=== PATIENT | female | born 1925 | race Caucasian/White ===

== ENCOUNTER 2017-10-02 11:18 | Inpatient (IN) | payer MEDICARE, OTHER ==
[2017-10-02] MEDS ORDERED: traMADol HCl 50 MG TAB ONE (13:23)
[2017-10-02 13:29] LABS: #Basophils 0.1 thou/uL (0.0-0.2); #Eosinphils 0.2 thou/uL (0.0-0.7); #Lymphocytes 1.7 thou/uL (1.20-3.40); #Monocytes 0.9 thou/uL (0.11-0.59); #Neutrophils 5.8 thou/uL (1.40-6.50); %Eosinophils 2.6 % (0.0-10.0); %Lymphocytes 19.8 % (21.0-51.0); %Monocytes 9.9 % (0.0-10.0); Hematocrit 34.6 % (36.0-47.0); Mean Platelet Volume 8.2 fL (7.4-10.4); Red Blood Cell (RBC) Count 3.81 mill/uL (4.20-5.40); White Blood Cell (WBC) Count 8.7 thou/uL (4.8-10.8)
[2017-10-02 13:40] LABS: ALT (SGPT) 13 U/L (8-55); AST (SGOT) 15 U/L (5-34); Alkaline Phosphatase 97 U/L (40-150); Anion Gap 14 mmol/L (10-20); BUN (Urea Nitrogen) 20 mg/dL (9.8-20.1); Bilirubin, Total 0.4 mg/dL (0.2-1.2); Calc. Creatinine Clearance 0 mL/min (70-130); Calcium 10.3 mg/dL (7.8-10.44); Carbon Dioxide 23 mmol/L (23-31); Chloride 106 mmol/L (98-107); Estimated GFR-MDRD 59; Globulin 3.2 g/dL (2.4-3.5); Protein, Total 6.7 g/dL (6.0-8.3)
--- NOTE | 2017-10-02 13:47 | RAD ---
LEFT HIP 2 VIEWS: HISTORY: Hip pain. FINDINGS: A total hip prosthesis appears to be in satisfactory position without signs of loosening or fracture. IMPRESSION: 1. Total hip prosthesis in satisfactory position. 2. Old-appearing fracture of the left side of the symphysis. POS: [facility]
--- NOTE | 2017-10-02 15:05 | CT ---
CT LUMBAR SPINE NONCONTRAST: Date: 10-02-17 History: 89-year-old female with back pain and multiple compression fractures. Comparison: Plain radiograph of 04-16-17. FINDINGS: There is fluid distending the esophagus, incompletely imaged. Within the right pelvic cavity there is an approximately 3.5 x 4.5 x 4 cm complex right solid and cystic mass. There are soft tissue compone nts, but the majority of the volume of this mass consists of a large number of cysts. Many are small. The largest cystic component is approximately 2.5 cm. Large number of diverticula thr oughout the sigmoid colon. Diffuse mild fat stranding throughout the pelvic cavity, especially on the left side. The right kidney is not visualized, and is perhaps absent. There is severe diffuse osteop enia. There are five lumbar type vertebrae. No significant scoliosis. No major spondylolisthesis. T11: Old burst fracture with mild bony retropulsion. Approximately 75% maximum loss of height central ly. T12: Burst fracture with bony retropulsion decreasing the anterior posterior dimension of the spinal canal by approximately 20%. There is a fracture lucency component at the junction of the between the right pedicle and right body which is questionably subacute or acute (axial Image 22 of 158, Series 4 ). Diffuse sclerosis of the collapsed T12 vertebral body. Maximum degree of loss of height is approxi mately 80%. L1: Old collapse. Central component of the collapsed vertebra has approximately 95-99% loss of height . The loss of height of the periphery of the vertebral body is less severe. Mild bony retropulsion de creasing the anterior portion of the spinal canal by approximately 20-30%. This was definitely presen t on the radiograph of 04-11-17, and has not significantly changed. L2: Mild, broad, chronic indentations of the superior and inferior endplates. Minimal loss of height of the anterior aspect of the vertebral body. L3: Broad indention of superior and inferior endplates, with maximum loss of height centrally of appr oximately 30-40%. L4: Overall maximum central loss of height of approximately 75-90%. Loss of height of the anterior an d posterior aspects of the vertebral bodies are less severe. Minimal bony retropulsion. L5: Vertebral body height is preserved. There is severe bilateral neural foraminal stenosis at T11-12, T12-L1, and L1-2. No severe central s arina canal stenosis at any level. IMPRESSION: 1. Severe, diffuse osteoporosis. 2. Multiple osteoporotic compression fractures and burst fractures of every visualized level, with th e relative exception of L5. 3. The vast majority of these are old. It is difficult to rule out the possibility that there could b e mild acute or subacute components of the compression fractures. 4. A complex solid and cystic right adnexal mass. In a post-menopausal female, this raises the possib ility of a cystic ovarian neoplasm. 5. Fat stranding within the left side of the pelvic cavity, in the setting of sigmoid colonic diverti culosis. It is uncertain whether or not this represents acute diverticulitis or not. This is incomple tely imaged. 6. Distended esophagus. 7. High grade bilateral neuroforaminal stenoses at T11-12, T12-L1, and L1-2. 8. No high-grade central spinal canal stenosis at any level. POS: [facility]W
[2017-10-02 16:38] LABS: Bilirubin Negative (Negative); Blood, Urine Negative (Negative); Glucose, Urine (Dipstick) Negative (Negative); Ketone, Urine Negative (Negative); Nitrite Negative (Negative); Protein, Urine (Dipstick) Negative (Neg-Trace); Urobilinogen 0.2 mg/dL (0.2-1.0)
[2017-10-02 16:44] LABS: RBC/HPF 0-3 HPF (0-3)
[2017-10-02 16:45] LABS: Bacteria/HPF 1+ HPF (None Seen); Renal Epithelial 0-3 HPF (0-3); Squamous Epithelial 0-3 HPF (0-3)
--- NOTE | 2017-10-02 16:54 | CT ---
CT OF ABDOMEN AND PELVIS PERFORMED WITH INTRAVENOUS CONTRAST ENHANCEMENT: History: Left sided abdominal pain. FINDINGS: The lung bases show chronic appearing change with subsegmental atelectatic change. There is a fluid c ollection which appears to be related to hiatal hernia. It is somewhat unusual in appearance for a he rnia, the upper portion is not seen on this exam and it may just represent some type of duplication c yst. The liver and spleen show no focal abnormalities. The pancreas region appears fairly unremarkable. There appears to be some slight pancreatic ductal di latation. There is a slightly ectopic appearance to the gallbladder which lies on the anterior aspect of the right inferior portion of the right lobe of the liver. The right and left kidneys show abnormal position of the right kidney which is more low lying and abn ormally rotated. There are some cysts involving both the right and left kidneys. One of these smaller cysts in the right kidney has a peripherally calcified margin and measures 11-12 mm in size. There i s a larger, 2 x 2.7 cm solid appearing mass involving the upper pole of the left kidney. There is a duplicated IVC present. There is a moderate amount of stool present in the colon. CT OF PELVIS PERFORMED WITH CONTRAST ENHANCEMENT: Total hip prosthesis is noted on the left. Sigmoid diverticulosis is seen without a definite inflamma tory process. There is a septated cystic appearing mass which would be in the expected location of th e right adnexa. It measures 4.2 cm in diameter. IMPRESSION: 1. Renal abnormalities as discussed above. The most significant of these is a 2 x 2.7 cm solid appear ing upper pole left renal mass suspicious for neoplasm. 2. Somewhat loculated or septated cystic appearing mass in the right side of the pelvis, presumably o f adnexal origin which measures 4.2 cm. 3. Sigmoid diverticulosis. 4. Other findings as noted above. 5. Findings telephoned to Dr. iRce. 6. Multilevel vertebral body compression changes, please refer to the CT report concerning these spec [facility] findings. POS: [facility]
[2017-10-02] MEDS ORDERED: HYDROcodone/Acetaminophen 5/325 mg Tablet ONE (18:00)
[2017-10-03] MEDS ORDERED: Ondansetron HCl/PF 4 MG/2 ML Vial IVP PRN (02:33)
[2017-10-03] MEDS ORDERED: Acetaminophen 325 MG TAB PO PRN (02:33)
[2017-10-03] MEDS ORDERED: Ondansetron ODT 4 MG TAB SL PRN (02:33)
[2017-10-03] MEDS ORDERED: Acetaminophen 650 MG Suppository PR PRN (02:46)
[2017-10-03 02:48] VITALS: BMI 16.1
[2017-10-03] MEDS ORDERED: hydrALAZINE 20 MG/ML VIAL SLOW IVP PRN ×3 (03:04→13:26)
--- NOTE | 2017-10-03 03:45 | HP ---
PRIMARY CARE PHYSICIAN: Tiffanie Martinez MD CHIEF COMPLAINT: Back pain. HISTORY OF PRESENT ILLNESS: Mr. Brock is a pleasant 89-year-old lady, who was seen at [facility] on 10/03/2017 following transfer from [facility] Emergency Room. She reports that in early February, she sustained left hip fracture. Since then, she has been having left hip and lower back pain. She was hospitalized for urinary tract infection in 03/2017 at [facility]. In terms of the hip fracture, she underwent left hip hemiarthroplasty. She reports ongoing lower back pain, worse with movement, 10/10, not accompanied by chest discomfort. She denies any weight loss. She denies any nausea or vomiting. REVIEW OF SYSTEMS: The following complete review of systems was negative, unless otherwise mentioned in the HPI or below: Constitutional: Weight loss or gain, sense of well-being, ability to conduct usual activities, exercise tolerance. Skin/Breast: Rash, itching, changes in hair growth or loss, n ail changes, breast lumps, tenderness, swelling, nipple discharge. Eyes: Vision, double vision, tea ring, blind spots, pain. ENT/Mouth: Headaches (location, time of onset, duration, precipitating fac tors), vertigo, lightheadedness, injury. Vision, double vision, tearing, blind spots, pain, nose ble eding, colds, obstruction, discharge, dental difficulties, gingival bleeding, dentures, neck stiffnes s, pain, tenderness, masses in thyroid or other areas. Cardiovascular: Precordial pain, substernal distress, palpitations, syncope, dyspnea on exertion, orthopnea, nocturnal paroxysmal dyspnea, edema, cyanosis, hypertension, heart murmurs, varicosities, phlebitis, claudication. Respiratory: Pain, s hortness of breath, wheezing, stridor, cough, hemoptysis, fever or night sweats. Gastrointestinal: Poor appetite, dysphagia, indigestion, abdominal pain, heartburn, eructation, nausea, vomiting, hemat emesis, jaundice, constipation, or diarrhea, abnormal stools (eleazar-colored, tarry, bloody, greasy, fo ul smelling), flatulence, hemorrhoids, recent changes in bowel habits. Genitourinary: Urgency, freq uency, dysuria, nocturia, hematuria, polyuria, oliguria, unusual (or change in) color of urine, stone s, hesitancy, change in size of stream, dribbling, acute retention or incontinence, libido, potency. Musculoskeletal: Pain, swelling, redness or heat of muscles or joints, limitation, of motion, muscu lar weakness, atrophy, cramps. Neurologic/Psychiatric: Convulsions, paralyses, tremor, incoordinati on, parasthesias, difficulties with memory of speech, sensory or motor disturbances, or muscular coor dination (ataxia, tremor), emotional problems, anxiety, depression, previous psychiatric care, unusua l perceptions, hallucinations. Allergy/Immunologic: Skin rash, anemia, bleeding tendency, polydipsi a, polyuria, intolerance to heat or cold. PAST MEDICAL HISTORY: Significant for hypertension and compression fracture of vertebrae. PAST SURGICAL HISTORY: Significant for left hip hemiarthroplasty. SOCIAL HISTORY: The patient denies any tobacco, alcohol, or recreational drug use. FAMILY HISTORY: No family history of premature coronary artery disease. ALLERGIES: No known drug allergies. CURRENT MEDICATIONS: Include amlodipine 10 mg daily. PHYSICAL EXAMINATION: GENERAL: Mr. Brock is awake and alert, not in acute distress. VITAL SIGNS: Blood pressure is 158/82, pulse is 76. She is breathing at rate of 16, and saturating 99% on room air. She is afebrile. EYES: No scleral icterus. No conjunctival pallor. ENT: Moist mucosal membranes, no oropharyngeal erythema, or exudates. NECK: Supple, nontender, normal range of movement. Trachea is midline. RESPIRATORY: Accessory muscles of breathing are not active. Chest wall movements are symmetric bila terally. LUNGS: Clear to auscultation, without wheeze, rhonchi, or crepitations. CARDIOVASCULAR: S1 and S2 are heard, regular. Peripheral pulses are palpable. No carotid bruit, no pericardial rub. ABDOMEN: Soft, nontender, bowel sounds heard, no hepatomegaly, no splenomegaly. LYMPHATIC: No cervical lymphadenopathy. NEUROLOGIC: Cranial nerves II through XII are intact. Deep tendon reflexes are 2+. SKIN: No rashes or subcutaneous nodules. MUSCULOSKELETAL: She has tenderness over the lumbar spine. Power is 5/5 in all 4 extremities. PSYCHIATRIC: Normal mood, normal affect, patient is oriented to person, place, and time. LABORATORY DATA: Ms. Brock labs and investigations were reviewed. She had lumbar spine CT, which showed severe diffuse osteoporosis, multiple osteoporotic compression fractures, and burst fractures of every visualized level with the relative exception of L5. She also had a complex solid and cystic right adnexal mass, raising the possibility of a cystic ovarian neoplasm. She also had fat-strandin g within the left side of the pelvic cavity in the setting of sigmoid colonic diverticulosis. She blanc d a distended esophagus, high-grade bilateral neural foraminal stenosis at T11-T12, T12-L1, and L1-L2 . She also had a CT scan of the abdomen and pelvis, which showed renal abnormalities, including 2 x 2.7 cm solid appearing upper left renal mass suspicious for neoplasm and loculated or septated cystic -appearing mass in the right side of the pelvis, presumably of adnexal region which measured 4.2 cm. She had x-ray of the left hip, which showed an old appearing fracture of the left side of the symphy sis. Total hip prosthesis was in satisfactory position. Laboratory investigation show a normal whit e count, normocytic anemia with hemoglobin 11.2, normal platelet count, unremarkable comprehensive me tabolic profile, and urinalysis positive for a small amount of leukocyte esterase. ASSESSMENT AND PLAN: Ms. Brock is a pleasant 89-year-old lady, who was seen at [facility] on 09/03/2017 following transfer from [facility] Emergency Room. Her probl em list includes: 1. Back pain: Likely due to multiple vertebral compression fractures. Neurosurgery service has bee n contacted by the emergency room physician at [facility] Emergency Room. They have recom mended admission to the hospital for further management, including fitting of a brace. We will follo w their instructions. Pain management for now. 2. Renal mass: Suspicious for neoplasm. I will consult Urology Service for their opinion. 3. Ovarian mass: In suspicious for neoplasm. Consult [facility] for opinion and help with furt her management. 4. Hypertension: Monitor vital signs, titrate antihypertensives as needed. LEVEL OF RISK: Moderate. LEVEL OF COMPLEXITY: Moderate. Many thanks for allowing me to participate in your patient's care. Please feel free to contact me wi th any questions or concerns. Code status was discussed, she is FULL CODE.
[2017-10-03 05:00] LABS: #Basophils 0.1 thou/uL (0.0-0.2); #Eosinphils 0.3 thou/uL (0.0-0.7); #Lymphocytes 1.4 thou/uL (1.20-3.40); #Monocytes 0.9 thou/uL (0.11-0.59); #Neutrophils 6.7 thou/uL (1.40-6.50); %Basophils 0.6 % (0.0-1.0); %Eosinophils 3.3 % (0.0-10.0); %Lymphocytes 14.7 % (21.0-51.0); Hematocrit 35.9 % (36.0-47.0); Mean Platelet Volume 8.6 fL (7.4-10.4); Red Blood Cell (RBC) Count 3.81 mill/uL (4.20-5.40); White Blood Cell (WBC) Count 9.4 thou/uL (4.8-10.8)
[2017-10-03 05:11] LABS: Anion Gap 11 mmol/L (10-20); BUN (Urea Nitrogen) 16 mg/dL (9.8-20.1); Calc. Creatinine Clearance 34 mL/min (70-130); Calcium 10.1 mg/dL (7.8-10.44); Carbon Dioxide 26 mmol/L (23-31); Chloride 103 mmol/L (98-107); Estimated GFR-MDRD 66
[2017-10-03] MEDS: Morphine 10 MG/ML CARPUJECT SLOW IVP PRN ×3 (06:29→18:23)
[2017-10-03] MEDS: Enoxaparin Sodium 40 MG/0.4 ML SYRINGE SC SCH (09:18)
--- NOTE | 2017-10-03 10:14 | CON ---
DATE OF CONSULTATION: 10/03/2017 HISTORY OF PRESENT ILLNESS: The patient is an 89-year-old female with a history of osteoporosis and multiple compression fractures in the past, who presented to [facility] for progressively worsening back pain over the last 2 weeks. She denies any other recent trauma or falls. She has been taking tramadol for pain. She denies any weakness, numbness, tingling, or bowel or bladder dysfunction. She was evaluated with a CT of the lumbar spine, which was notable for compression deformities from T11 to L4, which are age indeterminate in nature. She was admitted to the medicine service for pain management and as well as of a pelvic and renal mass, which is suspicious for neoplasm. The Neurosurgery Service was consulted for further evaluation of her compression deformities. PAST MEDICAL HISTORY: Osteoporosis, multiple compression fractures, hypertension. PAST SURGICAL HISTORY: Left hip surgery. SOCIAL HISTORY: The patient does not smoke, drink or use any drugs. FAMILY HISTORY: Noncontributory. ALLERGIES: Patient has no known drug allergies. REVIEW OF SYSTEMS: Per HPI. PHYSICAL EXAMINATION: CONSTITUTIONAL: No acute distress. HEAD: Normocephalic, atraumatic. EYES: PERRLA. Extraocular movements are intact. Sclerae white. ENT: Oral mucosa is pink, intact and moist. She has normal voice. NECK: Nontender to palpation. Free active range of motion. RESPIRATORY: The patient is breathing comfortably and no evidence of dyspnea. CARDIOVASCULAR: Regular rate and rhythm. BACK: She is tender to palpation diffusely over the lumbar spine and bilateral paraspinal musculature. MUSCULOSKELETAL: Patient is a thin, frail, poor muscle tone throughout; however , she has active range of motion of all extremities. No focal weakness, no reflex asymmetry. NEUROLOGIC: A&O x4. No focal weakness is appreciated. ASSESSMENT: Multiple compression fractures secondary to underlying osteoporosis at T11-L4 appears subacute in age. PLAN: I have ordered a TLSO brace, which the patient should wear for out of bed activities. She can remove the brace when she is in the bed or the shower. I do not anticipate any acute neurosurgical intervention. She can follow up with us on a p.r.n. basis. She may also benefit from followup with pain management for management of her chronic back pain and compression fractures. Please reach out to the neurosurgical service for additional questions or concerns. DEL
--- NOTE | 2017-10-03 12:30 | ULT ---
TRANSABDOMINAL AND TRANSVAGINAL PELVIC ULTRASOUND: INDICATION: Right adnexal mass. COMPARISON: CT dated 10/02/17. TECHNIQUE: Transabdominal and transvaginal pelvic ultrasound utilizing gordon scale, color and vascular duplex was performed of the pelvis. There is limitation of the exam detail due to loops of bowel within the lo wer pelvis. Uterus measures 4.8 x 2.2 x 2.9 cm. Endometrial stripe was not well seen due to the atr ophy of the uterus. The right adnexa is not well seen; however, the complex cystic mass seen on the CT examination is demonstrated measuring 4 x 4.1 x 3.2 cm and is suspicious for a complex cystic mass of the right ovary such as a cystoadenoma or cystadenocarcinoma. The left ovary is not seen. No fr ee fluid is evident. IMPRESSION: Complex cystic mass in the expected region of the right ovary. Normal ovary is not demonstrated. Fi ndings are suspicious for a complex cystic malignancy of the right ovary. BUT[facility]OLER consultation is rec ommended. CODE T POS: MATHEW
[2017-10-03] MEDS ORDERED: Amlodipine 5 MG TAB PO SCH (13:30)
--- NOTE | 2017-10-03 16:17 | RAD ---
PA AND LATERAL VIEWS OF CHEST: Date: 10/03/17 HISTORY: Rule out lesions. FINDINGS: The heart size is enlarged. The aorta is tortuous. The lungs are well expanded without confluent area s of consolidation, pneumothorax, or joel pulmonary edema. Small bilateral pleural effusions are see n. There are multiple compressed vertebral body fractures. IMPRESSION: 1. Cardiomegaly. 2. Small bilateral pleural effusions. 3. Compression fractures in the thoracic spine. POS: [facility]
--- NOTE | 2017-10-03 16:31 | CON ---
DATE OF CONSULTATION: 10/03/2017 REASON FOR CONSULTATION: Consultation was requested for left renal mass. HISTORY OF PRESENT ILLNESS: The patient was admitted with exacerbation of her chronic back pain and in the workup for this imaging found an incidental renal mass and I was consulted. Normally, she has frequency q. 2-3 hours nocturia x2- 3. She has no lower urinary tract symptoms nor leakage. She does not wear pads or liners. PAST MEDICAL HISTORY: Significant for osteoporosis with multiple compression fractures and hypertension. PAST OBSTETRIC HISTORY: She had four vaginal deliveries and has had no bleeding or vaginal concerns since menopause. 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 SOCIAL HISTORY: She does not smoke, drink or use drugs. She lives at home by herself and even moves her yard by her report. MEDICATIONS: Amlodipine 10 mg, occasional Metamucil and something that she takes every other day to help her bowels and vitamin D. ALLERGIES: None. REVIEW OF SYSTEMS: Reveals she had Pap smears and mammograms remotely and they were both normal. She had a colonoscopy around 2011 which was normal. There is no family history of colon cancer or prior polyps. She denies any chest pain or shortness of breath. She does have some left lower extremity tingling and that has been ever since the repair of her hip in February. She exercises routinely with respect to taking care of her house and property. FAMILY HISTORY: Significant for dad dying after he fell and broke his hip at age 92, mom passed at 88. There was no cancer in them. Her sister did have breast cancer, but it was cured. She has and all her siblings in their 80s or 90s. PHYSICAL EXAMINATION: GENERAL: She is lying comfortably in the bed. She is alert and oriented. VITAL SIGNS: She is afebrile at 97.9, blood pressure 167/97, heart rate 74, respiratory rate 18, satting 98% on room air. Her urine output is listed as 225 for the last measure. NECK: No JVD. HEENT: No scleral icterus. She has no concerning skin component. CARDIOVASCULAR: Regular rate and rhythm without murmurs, gallops or rubs. RESPIRATORY: Lungs are clear to auscultation bilaterally. 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 EXTREMITIES: She had no lower extremity edema. LABORATORY DATA: Reveal mild anemia 11.4 and 35.9. BUN and creatinine of 16 and 0.82. Her liver function tests are within normal limits. Urinalysis from the 10/02/2017 revealed 7-10 wbcs, 0-3 rbcs, 1+ bacteria and 0-3 squamous cells. Her urinalysis from March revealed 7-10 wbcs, no rbcs, no bacteria and 0- 3 squamous with the culture being negative. There is no recent chest x-ray. CT with contrast from 10/02/2017 reviewed personally and revealed a right ectopic kidney which is more inferior and anterior than normal with simple cyst as well as possible stones associated with one of the cysts as there are 3 areas of 3 mm each that may represent contrast, but could be calcifications associated with this non-concerning cyst. On the left, she also has a simple cyst in addition to a 2.5 x 1.8 x 1.5 cm enhancing mass. There are no precontrast images to compare, but the Hounsfield units with contrast were about 50. There is no other lymphadenopathy or liver concerns, but there was concern for an ovarian mass on the right. ASSESSMENT AND PLAN: We have an 89-year-old female with a left renal mass concerning for possible neoplasm. Based on the concerning right ovarian mass and her age, I would simply monitor at this time. We did discuss how this could represent cancer, but I would just reassess its aggressiveness by scanning in 3-6 months' time to assess for growth. We reviewed this in detail and all questions were answered. I would repeat a CAT scan in approximately 6 months' time to reevaluate unless she has some other symptoms that warrant repeating imaging sooner. DEL
[2017-10-03] MEDS: Morphine 2 mg/2ml in 0.9% NaCl PF SYRINGE IV PRN (22:36)
[2017-10-04 06:12] LABS: #Eosinphils 0.3 thou/uL (0.0-0.7); #Lymphocytes 1.7 thou/uL (1.20-3.40); #Monocytes 1.3 thou/uL (0.11-0.59); #Neutrophils 6.7 thou/uL (1.40-6.50); %Basophils 0.4 % (0.0-1.0); %Eosinophils 3.1 % (0.0-10.0); %Lymphocytes 16.7 % (21.0-51.0); Mean Platelet Volume 8.5 fL (7.4-10.4); Red Blood Cell (RBC) Count 3.65 mill/uL (4.20-5.40); White Blood Cell (WBC) Count 10.1 thou/uL (4.8-10.8)
[2017-10-04 06:22] LABS: Anion Gap 9 mmol/L (10-20); BUN (Urea Nitrogen) 14 mg/dL (9.8-20.1); Calc. Creatinine Clearance 35 mL/min (70-130); Calcium 9.8 mg/dL (7.8-10.44); Carbon Dioxide 29 mmol/L (23-31); Chloride 102 mmol/L (98-107); Estimated GFR-MDRD 67
--- NOTE | 2017-10-04 08:09 | CON ---
DATE OF CONSULTATION: 10/03/2017 REFERRING PHYSICIAN: Dr. Aren Duran. CHIEF COMPLAINT: Adnexal mass. HISTORY OF PRESENT ILLNESS: The patient is an 89-year-old female who presented to the hospital with severe back pain and was admitted for treatment and evaluation. During her evaluation, the patient h ad a CT scan and was noted to have a 4 cm multicystic complex adnexal mass and DENTAL OFFICE COORDINATOR was consulted f or evaluation. When I initially went to go see the patient, patient was restfully lying in bed. She reported that she was aware of this adnexal mass after it was discovered during this hospitalization , but had not had any problems previous to this visit. The patient denies any abdominal pain. She d enies any vaginal bleeding or a concerning discharge. She denies any nausea or vomiting or any weigh t loss. Patient does have back pain. She also had a hip fracture in 02/2017. PAST MEDICAL HISTORY: Hypertension and compression fracture of the vertebra. PAST SURGICAL HISTORY: Left hip hemiarthroplasty. SOCIAL HISTORY: Denies drug, alcohol, or tobacco use. FAMILY HISTORY: Coronary artery disease. ALLERGIES: No known drug allergies. MEDICATIONS: Amlodipine 10 mg daily. PHYSICAL EXAMINATION: VITAL SIGNS: 167/97, temperature 97.7, pulse of 74, respiratory rate of 18. GENERAL: She appears to be in no acute distress. She is alert and cooperative. She does appear to have some confusion intermittently during our conversation as with the purpose of our conversation. HEENT: Normocephalic, atraumatic. ABDOMEN: Soft. Patient had given resistance in performing any significant physical exam, but they d id allow me to palpate her abdomen over the blankets. LABORATORY DATA: CA-125 was ordered and was discovered to be within normal limits at 23.5. A pelvic ultrasound was also ordered to evaluate this adnexal mass and it appeared to be arising from the rig ht ovary. The mass is complex and cystic. Uterus appeared to be normal with an atrophic endometrial stripe. ASSESSMENT AND PLAN: The patient is an 89-year-old female, admitted to the hospital for back pain du e to vertebral fractures. There was an incidental mass seen in the pelvis, which appears to be a com plex adnexal mass; however, the CA-125 measurement is well within normal limits for a postmenopausal female. The risk that a malignancy is arising from this right adnexal mass is very low at this time. I did discuss findings with the patient, Ms. Brock. I am not sure how much she has understood. She did repeat my recommendations back to me, which were to follow up with an DENTAL OFFICE COORDINATOR in 3 months for a repeat evaluation including ultrasound and CA-125. We will be signing off at this time. Thank you for the opportunity to participate in Ms. Linda Brock's care.
[2017-10-04] MEDS: Morphine 2 mg/2ml in 0.9% NaCl PF SYRINGE IV PRN (08:41)
[2017-10-04] MEDS: Enoxaparin Sodium 40 MG/0.4 ML SYRINGE SC SCH (08:48)
[2017-10-04] MEDS ORDERED: Amlodipine 5 MG TAB PO SCH (09:00)
--- NOTE | 2017-10-04 13:00 | PDOC.PN ---
- Subjective Encounter Start Date: 10/04/17 Encounter Start Time: 07:35 Pt seen and examined earlier on rounds. Back perhaps a little better. TLSO brace still not here, pt able to sit up with assistance on the side of the bed, pain tolerable. No F/C, no N/V/d/C, no CP or SOB, no dysuria or increased urinary frequency. After leaving the room, i asked nursing about brace as pt said she thought it was there. Apparently, the pt told nursign that she isnt going to wear it. PT/Ot consulted to ambulate when brace on, plan to D/c when ambulatory 10 point ROS performed and neg for all systems except as above - Objective Resuscitation Status: Resuscitation Status FULL:Full Resuscitation MAR Reviewed: Yes Vital Signs & Weight: Vital Signs (12 hours) Temp Pulse Resp BP BP Pulse Ox 10/04/17 08:46 78 156/74 H 10/04/17 08:31 98.0 F 78 16 156/74 H 92 L 10/04/17 08:00 98.0 F 78 16 156/74 H 92 L 10/04/17 07:00 99.3 F 74 16 138/73 93 L 10/04/17 04:00 99.3 F 74 16 138/73 93 L Weight Admit Weight 102 lb 12.8 oz Weight 102 lb 12.8 oz I&O: 10/03/17 10/04/17 10/05/17 06:59 06:59 06:59 Intake Total 240 Output Total 225 Balance -225 240 Result Diagrams: 10/04/17 05:50 10/04/17 05:50 Radiology Reviewed by me: Yes EKG Reviewed by me: Yes Phys Exam - Physical Examination Constitutional: NAD HEENT: PERRLA, moist MMs, sclera anicteric, oral pharynx no lesions Neck: no nodes, no JVD, supple, full ROM Respiratory: no wheezing, no rales, no rhonchi, clear to auscultation bilateral Cardiovascular: RRR, no significant murmur, no rub Gastrointestinal: soft, non-tender, no distention, positive bowel sounds Musculoskeletal: no edema Neurological: non-focal, normal sensation, moves all 4 limbs Lymphatic: no nodes Psychiatric: normal affect, A&O x 3 Skin: no rash, normal turgor, cap refill <2 seconds Dx/Plan (1) T12 compression fracture Code(s): S22.080A - WEDGE COMPRESSION FRACTURE OF T11-T12 VERTEBRA, INIT Status: Acute (2) Acute exacerbation of chronic low back pain Code(s): M54.5 - LOW BACK PAIN; G89.29 - OTHER CHRONIC PAIN Status: Chronic (3) HTN (hypertension) Code(s): I10 - ESSENTIAL (PRIMARY) HYPERTENSION Status: Chronic Qualifiers: Hypertension type: essential hypertension Qualified Code(s): I10 - Essential (primary) hypertension (4) Protein-calorie malnutrition, moderate Code(s): E44.0 - MODERATE PROTEIN-CALORIE MALNUTRITION Status: Chronic - Plan cont current plan of care, plan discussed w/ family, PT/OT, social worker aide * . home when ambulatory, this afternoon if possible
--- NOTE | 2017-10-04 13:02 | PDOC.EVN ---
Event Note - Event Note Event Note: additional diagnoses for note dated today: adnexal mass - normal CA-125. OPTOMETRIC COORDINATOR recommends repeat eval in 3 months renal Mass - seen by urology - recommend repeat CT in 6 months
[2017-10-04] MEDS: Acetaminophen 325 MG TAB PO PRN ×2 (13:04→16:42)
[2017-10-04 16:02] VITALS: BP 158/74; TEMP 97.8
== END 2017-10-04 17:12 | disposition home or self-care (01) | DRG 543 ==
LOC: SCSER 11:18 → IMCU/EMU 14:45 → T4-A 10-03 22:09
PROVIDERS: ADMIT Internal Medicine; ATTEND Internal Medicine
DX: M80.88XA Other osteoporosis with current pathological fracture, vertebra(e), initial encounter for fracture (principal); E44.0 Moderate protein-calorie malnutrition; Z68.1 Body mass index [BMI] 19.9 or less, adult; I10 Essential (primary) hypertension; Z96.642 Presence of left artificial hip joint; N28.89 Other specified disorders of kidney and ureter; N83.9 Noninflammatory disorder of ovary, fallopian tube and broad ligament, unspecified; N95.9 Unspecified menopausal and perimenopausal disorder
CPT/HCPCS: 36415; 71020; 72131; 74177; 76856; 80048; 80053; 81003; 81015; 85025; 86304; A4216; J1650; J2270

== ENCOUNTER 2017-10-18 16:57 | Inpatient (IN) | payer MEDICARE, OTHER ==
[2017-10-18 17:51] LABS: #Basophils 0.1 thou/uL (0.0-0.2); #Eosinphils 0.2 thou/uL (0.0-0.7); #Lymphocytes 1.8 thou/uL (1.20-3.40); #Monocytes 0.8 thou/uL (0.11-0.59); #Neutrophils 5.4 thou/uL (1.40-6.50); %Basophils 0.6 % (0.0-1.0); %Lymphocytes 21.8 % (21.0-51.0); %Monocytes 9.8 % (0.0-10.0); %Neutrophils 64.8 % (42.0-75.0); Hemoglobin 11.4 g/dL (12.0-16.0); Mean Corpuscular Hemoglobin 28.8 pg (27.0-31.0); Mean Corpuscular Volume 89.8 fl (81.0-99.0); Mean Platelet Volume 8.2 fL (7.4-10.4); Platelet Count 223 thou/uL (130-400); RBC Distribution Width 14.1 % (11.5-14.5); Red Blood Cell (RBC) Count 3.97 mill/uL (4.20-5.40); White Blood Cell (WBC) Count 8.3 thou/uL (4.8-10.8)
[2017-10-18 18:05] LABS: Anion Gap 14 mmol/L (10-20); BUN (Urea Nitrogen) 23 mg/dL (9.8-20.1); Calc. Creatinine Clearance 0 mL/min (70-130); Calcium 10.7 mg/dL (7.8-10.44); Carbon Dioxide 26 mmol/L (23-31); Chloride 104 mmol/L (98-107); Estimated GFR-MDRD 49; Glucose 102 mg/dL (83-110); Potassium 3.6 mmol/L (3.5-5.1); Sodium 140 mmol/L (136-145)
[2017-10-18 18:09] LABS: CKMB 1.6 ng/mL (0-6.6); Troponin I 0.049 ng/mL (< 0.028)
[2017-10-18 18:37] LABS: Bilirubin Negative (Negative); Blood, Urine Negative (Negative); Clarity Clear (Clear); Glucose, Urine (Dipstick) Negative (Negative); Leukocyte Negative (Negative); Nitrite Negative (Negative); Protein, Urine (Dipstick) Negative (Neg-Trace); Urobilinogen 0.2 mg/dL (0.2-1.0); pH, Urine 5.5 (5.0-9.0)
[2017-10-18 18:38] LABS: Specific Gravity, Urine 1.026 (1.002-1.036)
--- NOTE | 2017-10-18 20:45 | RAD ---
PORTABLE CHEST: 10/18/17 PROVIDED CLINICAL HISTORY: Chest pain. FINDINGS: Comparison 10/03/17. The cardiac silhouette again appears enlarged. Hiatal hernia is again seen. Vascular calcifications i nvolves the aortic arch. The examination is rotated, limiting assessment. No focal consolidation, ple ural fluid, or pneumothorax apparent. IMPRESSION: Cardiomegaly without evidence for an acute cardiopulmonary process. POS: CLYDE
[2017-10-18 21:07] LABS: Troponin I 0.051 ng/mL (< 0.028)
[2017-10-18 21:48] VITALS: BMI 17.9
[2017-10-19 00:39] LABS: Troponin I 0.068 ng/mL (< 0.028)
[2017-10-19] MEDS: Morphine 4 MG/ML VIAL SLOW IVP PRN ×2 (01:27→09:25)
[2017-10-19] MEDS ORDERED: HYDROcodone/Acetaminophen 5/325 mg Tablet PO PRN (11:56)
[2017-10-19] MEDS ORDERED: Senokot 8.6 MG TAB PO PRN (11:56)
[2017-10-19] MEDS ORDERED: Acetaminophen 500 MG TAB PO PRN (11:56)
[2017-10-19] MEDS ORDERED: Ondansetron ODT 4 MG TAB PO PRN (11:56)
[2017-10-19] MEDS ORDERED: Ondansetron HCl/PF 4 MG/2 ML Vial IVP PRN (11:56)
[2017-10-19] MEDS ORDERED: cloNIDine 0.1 MG TAB PO PRN (11:56)
[2017-10-19] MEDS ORDERED: traMADol HCl 50 MG TAB PO PRN (11:56)
[2017-10-19] MEDS ORDERED: hydrALAZINE 20 MG/ML VIAL SLOW IVP PRN (11:56)
[2017-10-19] MEDS ORDERED: Morphine 4 MG/ML Carpuject SLOW IVP PRN (11:56)
[2017-10-19] MEDS ORDERED: Morphine 4 MG/ML VIAL SLOW IVP PRN (12:04)
--- NOTE | 2017-10-19 13:14 | HP ---
DATE OF ADMISSION: 10/19/2017 PRIMARY CARE PHYSICIAN: Tiffanie Martinez MD CHIEF COMPLAINT: Left hip and back pain. HISTORY OF PRESENT ILLNESS: This is an 89-year-old female who presents to [facility] complaining of persistent left hip, back and lower extremity pain and limiting her ability to ambulate. The patient states she underwent a left total hip replacement in early 2016 aft er sustaining a fracture status post mechanical fall. The patient has been in and out of skilled cynthia sing and rehabilitation since the fracture was repaired with some improvement with rehab and directed therapy. The patient had returned home living with her family, however, continues to decline with l imited mobility, increasing back pain, not amenable to oral medications and generalized weakness. Ryland martinez underwent recent CT imaging of the lumbar spine showing multiple areas of osteoporotic compress ion fractures at multiple levels with neural foraminal stenosis. The patient states she is normally very active at her home with yard work, but has been limited after sustaining the left hip fracture i n the spring. The granddaughter, who accompanies the patient, states the patient has had mcbride ited mobility, but no specific fall recently. No reported history of dysuria, fever, increased cough , congestion, or pneumonia. The patient states she was taking tramadol and [place] at home for pain re lief; however, this has been unsuccessful in relieving her symptoms. The patient denies any recent h ead injury or local trauma, but does states that she tries to exercise her legs in the seated positio n or lying in bed. The patient normally uses a rolling walker with some standby assistance. In the emergency room, the patient underwent general evaluation with chest imaging showing no acute cardiopu lmonary process. Screening metabolic survey showed elevated troponin I consistent with prior trend d ating back into the mid portion of 2017. The patient currently denies any specific chest pain, short ness of breath, jaw or left arm discomfort. The patient received aspirin 324 mg x1 dose in addition to 2 mg of morphine sulfate IV push. The patient was transferred to the stroke unit for further eval uation. PAST MEDICAL HISTORY: 1. Severe osteoporosis with multilevel degenerative changes and compression fractures of the thoraci c and lumbar spine. 2. Status post fall with left hip fracture. 3. Deconditioning. 4. History of urinary tract infections. 5. Hypertension. PAST SURGICAL HISTORY: Status post left total hip arthroplasty. CURRENT MEDICATIONS: 1. Tylenol 650 mg p.o. q.4-6 hours p.r.n. pain. 2. Amlodipine 5 mg one tab p.o. daily. 3. Vitamin D3 1000 units p.o. daily. 4. [place] 5/325 mg 1 tab p.o. q.4-6 hours p.r.n. pain. 5. Advil Liqui-Gels 200 mg p.o. q.6 hours p.r.n. pain. 6. MiraLax 17 grams p.o. daily. 7. Tramadol 50 mg p.o. q.4 hours p.r.n. pain. ALLERGIES: No known drug allergies. FAMILY HISTORY: No inheritable diseases per patient report. SOCIAL HISTORY: The patient resides in the [place], [place] area, living with her granddaughter. Ambula il with a rolling walker. History of prior fall with a left hip fracture. No alcohol, tobacco or i llicit drug use. REVIEW OF SYSTEMS: The following complete review of systems was negative, unless otherwise mentioned in the HPI or below: Constitutional: Weight loss or gain, ability to conduct usual activities. Sk in: Rash, itching. Eyes: Double vision, pain. ENT/Mouth: Nose bleeding, neck stiffness, pain, te nderness. Cardiovascular: Palpitations, dyspnea on exertion, orthopnea. Respiratory: Shortness of breath, wheezing, cough, hemoptysis, fever or night sweats. Gastrointestinal: Poor appetite, abdo jennifer pain, heartburn, nausea, vomiting, constipation, or diarrhea. Genitourinary: Urgency, frequen cy, dysuria, nocturia. Musculoskeletal: Pain, swelling. Neurologic/Psychiatric: Anxiety, depressio n. Allergy/Immunologic: Skin rash, bleeding tendency. Otherwise negative except as stated per HPI. PHYSICAL EXAMINATION: VITAL SIGNS: On admission, blood pressure 164/77, pulse 80, respiratory rate 24, temperature 98 degr ees Fahrenheit, O2 saturation 93% on room air. GENERAL APPEARANCE: This is an 89-year-old female, alert and oriented x3, pleasant, conver edda, responsive, in no acute distress. HEENT: Pupils are equal, round, and reactive to light and accommodation. Extraocular muscles intact . No scleral icterus, no conjunctival injection. Nares patent. OP is clear. Teeth in good repair. NECK: Supple, no cervical adenopathy, no thyromegaly, no carotid bruits, no JVD appreciated. Cervic al spine with full active and passive range of motion. CHEST: Lungs are clear to auscultation bilaterally. CARDIOVASCULAR: S1, S2, without noted murmur. ABDOMEN: Rounded, soft, nontender, nondistended. Bowel sounds are positive in all four quadrants. There is no hepatosplenomegaly, no abdominal bruits, no rebound or guarding appreciated. EXTREMITIES: Warm and dry with fair turgor. No clubbing, cyanosis or asymmetric edema appreciated. Pulses palpable distally at the dorsalis pedis, posterior tibial, and popliteal arteries bilaterally . Capillary refill less than 2 seconds. NEUROLOGIC: Cranial nerves II-XII are grossly intact. No focal or lateralizing signs appreciated. The patient is not observed ambulatory during this exam. Moves all extremities on command. PERTINENT LABORATORY AND X-RAY FINDINGS: Sodium 140, potassium 3.6, chloride 104, CO2 is 26, BUN 23, creatinine 1.05, estimated GFR 49, glucose 102, calcium 10.7. Troponin I ranged between 0.049-0.068 . CBC showed a white blood cell count 8.3, hemoglobin 11, hematocrit 36, platelet count 223 with nor mal differential. Urinalysis negative. Portable chest x-ray dated 10/18/2017 showed no acute cardio pulmonary process. EKG dated 10/18/2017 by my interpretation shows sinus mechanism with heart rate i n the 80s. Attenuated R waves noted in the precordial leads. Left bundle branch block pattern noted . Left axis deviation noted. No acute ST-T wave changes appreciated. ASSESSMENT AND PLAN: 1. Intractable back and left hip pain. The patient will be admitted to the stroke unit. We will co ntinue pain control with morphine sulfate 4 mg intravenously every 4 hours p.r.n. pain. We will cons ult the pain service for evaluation and recommendations on long-term pain management and options. Co ntinue tramadol and [place]. Consider a trial of lidocaine patch over the left hip region. Likely mul tifactorial pain given patient's severe osteoporosis, deconditioned state and prior left hip fracture with protracted rehabilitation. 2. Severe osteoporosis with multiple compression fractures. Continue pain management as outlined in #1. Consult PT/OT for functional assessment. The patient may need additional supervised skilled nu rsing care versus aggressive inpatient rehabilitation. We will obtain a rehabilitation screening. 3. Elevated troponin I. Appears chronic when compared to previous values dating back to 03/2017. N o current evidence to suggest acute coronary syndrome. 4. Hypertension. Continue home antihypertensive regimen and monitor clinical response. 5. Chronic kidney disease stage 2. We will avoid nephrotoxic agents and contrast media. Repeat cre atinine in the a.m. 6. Prophylaxis. Sequential compression devices while in bed. Pepcid 20 mg p.o. b.i.d. Physical the rapy and occupational therapy evaluation. 7. Code status is full. Surrogate medical decision maker is patient's granddaughter.
[2017-10-19] MEDS ORDERED: Dexamethasone 4 mg/ml Vial SLOW IVP SCH (18:30)
--- NOTE | 2017-10-19 19:36 | CON ---
DATE OF CONSULTATION: 10/19/2017 REASON FOR CONSULTATION: Left posterior buttock and leg pain. HISTORY OF PRESENT ILLNESS: The patient is an 89-year-old female status post hip replacement, left s missy in February at [facility], was in rehab, discharged home, doing fairly well until the la st 24 hours when she began having significant lateral thigh pain extending into the anterior medial t high to the knee, occasionally below the knee. Plain images of the hip revealed the prosthesis to be intact. No significant movements are loose hardware was noted. The patient also had a CT scan of t he lumbar spine demonstrating multiple compression fractures essentially at every level, possibly spa ring somewhat L5 which is about 10-20% fractured, most appear old with the exception of possibly T12. There is what appears to be a right pedicle fracture of T12 as well. There is foraminal stenosis a t multiple levels, most pronounced on the left at L4. There is slight foraminal stenosis mild to mod erate on the left at L5. Central canal is maintained. There is a burst fracture with about 80% comp ression at T12-T11. Spinal canal is fairly maintained with moderate stenosis. Pain is intermittent and primarily with weightbearing, extension seems to aggravate her symptoms. She denies any recent f alls. No fever or chills. Overall, has done well with her hip replacement. She apparently is follo wed by Orthopedic Surgery at [facility] and interventional pain medicine physician at [facility], I do not have any of these records. PAST MEDICAL HISTORY: Significant for osteoporosis, numerous compression fracture, no prior vertebro plasty or vertebral augmentation that I can ascertain. She has not received any recent interventiona l treatment. SOCIAL HISTORY: She does live here in [place]. Her son takes care of her daily needs and does work he re at [employer]. CURRENT MEDICATIONS: Include Tylenol, hydrocodone 5/325. She was taking this at home with minimal r esults. She is also using tramadol and MiraLax and Advil p.r.n. REVIEW OF SYSTEMS: Negative, with exception at HPI. PHYSICAL EXAMINATION: GENERAL: She is alert, oriented, in no distress. She is sitting upright in bed, eating dinner. HEAD/NECK: Unremarkable. There is no significant loss of range of motion of the cervical spine. No midline tenderness. No posterior interscapular or trapezius trigger areas. CHEST: Clear. No chest wall tenderness, no rib tenderness. ABDOMEN: Benign. BACK: Reveals step off, T11-T12, T12-L1. No midline tenderness. No paraspinous tenderness, specifi jennifer no paraspinous tenderness at T11-T12 area. No paraspinous lumbar tenderness. MUSCULOSKELETAL: Straight leg raise test is negative bilaterally. Sensory exam is intact. Motor ex am on the right side, all muscle groups intact. No focal deficits on the left side. She has -4/5 il iopsoas weakness left side, adductors are slightly weak 4/5. All other muscle groups intact. Reflex es are 2+ patella, 2+ ankle on the right, absent patella on the left, 1+ ankle on the left. Cervical spine exam is benign with no abnormalities noted. Motor and sensory exams intact. NEUROLOGIC: Devoid of any pathologic reflexes. No evidence of myelopathic changes. IMPRESSION: 1. Left hip pain, likely radicular most likely an L4/L5 radiculitis. 2. Possible sacroiliitis on the left side. 3. History of hip replacement, does not appear to be a significant pain generator. RECOMMENDATION: Decadron 6 mg IV, gabapentin 100 mg p.o. t.i.d. Continue current narcotic. She may need therapeutic L4-L5 transforaminal injection if she fails to improve. We will follow up tomorrow .
[2017-10-19] MEDS: Docusate 100 MG CAP PO SCH (20:18)
[2017-10-19] MEDS: Gabapentin 100 MG CAP PO SCH (20:18)
[2017-10-19] MEDS: Famotidine 20 MG TAB PO SCH (20:18)
[2017-10-20 06:51] LABS: Band 6 % (5-11); Hemoglobin 11.9 g/dL (12.0-16.0); Lymphocytes 15 % (21-51); MDiff Complete? YES; Mean Corpuscular Hemoglobin 30.5 pg (27.0-31.0); Mean Corpuscular Volume 92.6 fl (81.0-99.0); Mean Platelet Volume 9.2 fL (7.4-10.4); Monocytes 1 % (0-10); Neutrophil 78 % (42-75); Platelet Count 229 thou/uL (130-400); RBC Distribution Width 14.1 % (11.5-14.5); Red Blood Cell (RBC) Count 3.91 mill/uL (4.20-5.40); White Blood Cell (WBC) Count 4.9 thou/uL (4.8-10.8)
[2017-10-20 06:59] LABS: Anion Gap 11 mmol/L (10-20); BUN (Urea Nitrogen) 23 mg/dL (9.8-20.1); Calc. Creatinine Clearance 31 mL/min (70-130); Calcium 10.4 mg/dL (7.8-10.44); Carbon Dioxide 28 mmol/L (23-31); Chloride 102 mmol/L (98-107); Estimated GFR-MDRD 61; Glucose 131 mg/dL (83-110); Sodium 137 mmol/L (136-145)
[2017-10-20] MEDS: Polyethylene Glycol 3350 17 GM Packet PO SCH (09:26)
[2017-10-20] MEDS: Gabapentin 100 MG CAP PO SCH ×3 (09:27→21:36)
[2017-10-20] MEDS: Amlodipine 5 MG TAB PO SCH (09:27)
[2017-10-20] MEDS: Docusate 100 MG CAP PO SCH ×2 (09:27→21:36)
[2017-10-20] MEDS: Famotidine 20 MG TAB PO SCH ×2 (09:27→21:36)
--- NOTE | 2017-10-20 12:59 | PQF ---
CLINICAL DOCUMENTATION IMPROVEMENT CLARIFICATION FORM: ICD-10 Updated PLEASE DO AN ADDENDUM TO THE PROGRESS NOTE WITH ANY DOCUMENTATION UPDATES OR ADDITIONS AND CARRY THROUGH TO DC SUMMARY. THANK YOU. Date: 10/20/17 ATTN: Dr. Rodriguez Please exercise your independent, professional judgment in responding to the clarification form. Clinical indicators are provided on the bottom of this form for your review Please check appropriate box(s): [ x ] Protein Calorie Malnutrition: [ ] Mild [ x ] Moderate [ ] Severe [ ] Other Malnutrition (please specify) __ [ ] Other diagnosis [ ] Unable to determine In addition, please specify: Present on Admission (POA): [ x ] Yes [ ] No [ ] Unable to determine CLINICAL INDICATORS - SIGNS / SYMPTOMS / LABS SPECIAL EDUCATION COORDINATOR ASSESSMENT 10/19: BMI 17.9 NUTRITION DX: MALNUTRITION R/T POOR APPETITE 11% WT LOSS IN LAST 6 MONTHS , MUSCLE WASTING OBSERVED TO TEMPLES & CLAVICLES, FAT WASTING NOTED TO RIBS/CHEST. RISKS: H&P: AGE 89. SEVERE OSTEOPOROSIS W/ MULTIPLE COMPRESSION FRACTURES. TREATMENT: SPECIAL EDUCATION COORDINATOR ASSESSMENT FOR WOUND CARE CONSULT. WT LOSS TRIGGER. Thank you, Bharati (This form is maintained as a part of the permanent medical record) 2015 [employer]. All Rights Reserved Bharati Berrios RN, BSN [email or web address] Office: [phone] [facility]
--- NOTE | 2017-10-20 13:12 | PQF ---
CLINICAL DOCUMENTATION IMPROVEMENT CLARIFICATION FORM: ICD-10 Updated PLEASE DO AN ADDENDUM TO THE PROGRESS NOTE WITH ANY DOCUMENTATION UPDATES OR ADDITIONS AND CARRY THROUGH TO DC SUMMARY. THANK YOU. DATE: 10/20/17 ATTN: Dr. Rodriguez Please exercise your independent, professional judgment in responding to the clarification form. Clinical indicators are provided on the bottom of this form for your review Please check appropriate box(s): ___x____ I (concur) with the Wound Care findings as stated below. [ ] Pressure Ulcer: (Stage I: Erythema; Stage II: Partial thickness; Stage III : Full thickness; Stage IV: Necrosis to muscle/bone) [ ] Location: POA: [ ] Yes [ ] No [ ] Unable to determine Stage (I to IV): (Left Right Bilateral N/A ) [ ] Other diagnosis [ ] Unable to determine In addition, please specify: Present on Admission (POA): [ ] Yes [ ] No [ ] Unable to determine For continuity of documentation, please document condition throughout progress notes and discharge summary. Thank You. Pre-ulcer skin changes limited to persistent focal edema (Stage 1) Abrasion, blister, partial thickness skin loss involving epidermis and/or dermis (Stage 2) Full thickness skin loss involving damage or necrosis of SQ tissue. (Stage 3) Necrosis of soft tissue through to underlying muscle, tendon, or bone. (Stage 4) Purple or maroon discolored skin or blood filled blister CLINICAL INDICATORS - SIGNS / SYMPTOMS / LABS WOUND CARE ASSESSMENT: 10/19 SACROCOCCYXGEAL PRESSURE ULCER. STAGE II RISK FACTORS: H&P: AGE 89. INTRACTABLE BACK & L HIP PAIN. SEVERE OSTEOPOROSIS W/ MULTIPLE COMPRESSION FRACTURES. TREATMENTS: ORDER 10/19: WOUND CARE CONSULT FOR DECUBITUS ULCER Thank you, Bharati (This form is maintained as a part of the permanent medical record) 2014 [employer]. All Rights Reserved Bharati Berrios RN, BSN [email or web address] Office: [phone] [facility]
--- NOTE | 2017-10-20 15:33 | PDOC.PN ---
- Subjective Encounter Start Date: 10/20/17 Encounter Start Time: 15:25 Subjective: f/u for L hip/back pain currently managed with Gabapentin, Siloam, Ibuprofen -: and single dose Decadron. Feeling better overall. Low-grade fever noted -: x 1. - Objective Resuscitation Status: Resuscitation Status DNR:Do Not Resuscitate MAR Reviewed: Yes Vital Signs & Weight: Vital Signs (12 hours) Temp Pulse Pulse Resp BP BP Pulse Ox 10/20/17 11:23 98 F 70 16 133/63 96 10/20/17 09:27 67 10/20/17 08:31 80 183/84 H 10/20/17 08:00 98 F 70 16 10/20/17 07:50 100.6 F H 67 16 123/59 L 96 10/20/17 05:03 97.4 F L 63 16 116/65 93 L Weight Admit Weight 100 lb 14.4 oz Weight 100 lb 14.4 oz I&O: 10/19/17 10/20/17 10/21/17 06:59 06:59 06:59 Intake Total 50 680 960 Output Total 0 Balance 50 680 960 Result Diagrams: 10/20/17 05:25 10/20/17 05:25 Additional Labs: Laboratory Tests 10/18/17 10/18/17 10/18/17 17:42 17:42 20:45 Creatinine 1.05 Estimated GFR (MDRD) 49 Troponin I 0.049 H 0.051 H 10/19/17 10/20/17 00:08 05:25 Creatinine Estimated GFR (MDRD) 61 Troponin I 0.068 H EKG Reviewed by me: Yes (Tele - SR 70's) Phys Exam - Physical Examination Constitutional: NAD HEENT: PERRLA, oral pharynx no lesions Neck: no JVD, supple Respiratory: no wheezing, clear to auscultation bilateral Cardiovascular: RRR Gastrointestinal: soft, non-tender, no distention, positive bowel sounds Musculoskeletal: no edema, pulses present Neurological: normal sensation, moves all 4 limbs Psychiatric: A&O x 3 Skin: normal turgor, cap refill <2 seconds Dx/Plan (1) Acute exacerbation of chronic low back pain Code(s): M54.5 - LOW BACK PAIN; G89.29 - OTHER CHRONIC PAIN Status: Acute Comment: Likely multifactorial given multiple vertebral compression fx, pain level overall decreased with current regimen (2) Vertebral compression fracture Code(s): M48.50XA - COLLAPSED VERTEBRA, NEC, SITE UNSP, INIT Status: Acute Comment: Continue supportive mgmt, see above (3) Sacral decubitus ulcer, stage II Code(s): L89.152 - PRESSURE ULCER OF SACRAL REGION, STAGE 2 Status: Chronic Comment: Local care, turning protocol (4) Generalized weakness Code(s): R53.1 - WEAKNESS Status: Chronic Comment: PT evaluation for [place] [facility] plan, likely will benefit from ongoing PT in supervised setting (5) Protein-calorie malnutrition, moderate Code(s): E44.0 - MODERATE PROTEIN-CALORIE MALNUTRITION Status: Chronic Comment: Add Ensure Enlive BID, Regular diet - Plan plan discussed w/ family, PT/OT, social sciences professor, out of bed/ambulate, DVT proph w/SCDs Stable overall -: Appreciate Pain mgmt service assistance -: Continue current Gabapentin -: Continue Siloam -: PT evaluation for dispo planning * CM for SNF/NH options * DNR status confirmed * Likely can d/c in 24-48h
[2017-10-21] MEDS: Famotidine 20 MG TAB PO SCH ×2 (09:49→20:37)
[2017-10-21] MEDS: Docusate 100 MG CAP PO SCH ×2 (09:49→20:37)
[2017-10-21] MEDS: Gabapentin 100 MG CAP PO SCH ×3 (09:49→20:37)
[2017-10-21] MEDS: Amlodipine 5 MG TAB PO SCH (09:50)
[2017-10-21] MEDS: Polyethylene Glycol 3350 17 GM Packet PO SCH (09:50)
--- NOTE | 2017-10-21 11:50 | PDOC.PN ---
- Subjective Encounter Start Date: 10/21/17 Encounter Start Time: 11:40 Subjective: f/u for back and L hip pain improved with Gabapentin and Tramadol. -: Working with PT currently. Awaiting options for SNF. Pain overall improved. - Objective Resuscitation Status: Resuscitation Status DNR:Do Not Resuscitate MAR Reviewed: Yes Vital Signs & Weight: Vital Signs (12 hours) Temp Pulse Pulse Pulse Resp BP BP 10/21/17 09:50 68 140/68 10/21/17 08:50 78 74 144/65 H 10/21/17 07:58 98.3 F 68 16 10/21/17 07:35 98.1 F 74 16 10/21/17 03:29 98.3 F 68 16 BP BP Pulse Ox 10/21/17 09:50 10/21/17 08:50 133/62 10/21/17 07:58 96 10/21/17 07:35 140/68 96 10/21/17 03:29 121/57 L 96 Weight Admit Weight 100 lb 14.4 oz Weight 100 lb 14.4 oz I&O: 10/20/17 10/21/17 10/22/17 06:59 06:59 06:59 Intake Total 680 1560 Output Total 0 Balance 680 1560 Result Diagrams: 10/20/17 05:25 10/20/17 05:25 EKG Reviewed by me: Yes (Tele - SR) Phys Exam - Physical Examination Constitutional: NAD HEENT: PERRLA, oral pharynx no lesions Neck: no JVD, supple Respiratory: no wheezing, clear to auscultation bilateral Cardiovascular: RRR Gastrointestinal: soft, non-tender, no distention, positive bowel sounds Musculoskeletal: no edema, pulses present Neurological: normal sensation, moves all 4 limbs Psychiatric: A&O x 3 Skin: normal turgor, cap refill <2 seconds Dx/Plan (1) Acute exacerbation of chronic low back pain Code(s): M54.5 - LOW BACK PAIN; G89.29 - OTHER CHRONIC PAIN Status: Acute Comment: Likely multifactorial given multiple vertebral compression fx, pain level overall decreased with current regimen (2) Vertebral compression fracture Code(s): M48.50XA - COLLAPSED VERTEBRA, NEC, SITE UNSP, INIT Status: Acute Comment: Continue supportive mgmt, see above (3) Sacral decubitus ulcer, stage II Code(s): L89.152 - PRESSURE ULCER OF SACRAL REGION, STAGE 2 Status: Chronic Comment: Local care, turning protocol (4) Generalized weakness Code(s): R53.1 - WEAKNESS Status: Chronic Comment: PT evaluation for correction plan, likely will benefit from ongoing PT in supervised setting (5) Protein-calorie malnutrition, moderate Code(s): E44.0 - MODERATE PROTEIN-CALORIE MALNUTRITION Status: Chronic Comment: Add Ensure Enlive BID, Regular diet - Plan plan discussed w/ family, PT/OT, social media campaign manager, out of bed/ambulate, DVT proph w/SCDs Stable currently -: Continue Gabapentin 100mg TID -: Continue Tramadol 50mg po q4h prn -: PT for mobilization and ROM exercises -: WCT for local decubitus care * Awaiting approval for SNF placement
[2017-10-22] MEDS: Famotidine 20 MG TAB PO SCH ×2 (09:07→20:32)
[2017-10-22] MEDS: Gabapentin 100 MG CAP PO SCH ×3 (09:07→20:32)
[2017-10-22] MEDS: Docusate 100 MG CAP PO SCH ×2 (09:07→20:31)
[2017-10-22] MEDS: Amlodipine 5 MG TAB PO SCH (09:07)
[2017-10-22] MEDS: Polyethylene Glycol 3350 17 GM Packet PO SCH (09:08)
[2017-10-22] MEDS: Ibuprofen 200 MG TAB PO PRN ×2 (09:11→13:04)
--- NOTE | 2017-10-22 13:01 | PDOC.PN ---
- Subjective Encounter Start Date: 10/22/17 Encounter Start Time: 08:00 Pt seen for followup re: back pain. Reports pain slightly better. - Objective Resuscitation Status: Resuscitation Status DNR:Do Not Resuscitate MAR Reviewed: Yes Vital Signs & Weight: Vital Signs (12 hours) Temp Pulse Pulse Pulse Resp BP BP 10/22/17 11:30 99 F 78 16 10/22/17 09:06 91 77 149/66 H 143/80 H 10/22/17 09:00 98 F 69 16 10/22/17 07:40 98 F 69 16 10/22/17 03:53 97.9 F 73 18 BP Pulse Ox 10/22/17 11:30 160/73 H 95 10/22/17 09:06 10/22/17 09:00 10/22/17 07:40 144/77 H 96 10/22/17 03:53 136/74 94 L Weight Admit Weight 100 lb 14.4 oz Weight 100 lb 14.4 oz I&O: 10/21/17 10/22/17 10/23/17 06:59 06:59 06:59 Intake Total 1560 1680 Output Total 200 Balance 1560 1480 Result Diagrams: 10/20/17 05:25 10/20/17 05:25 EKG Reviewed by me: Yes (Tele: NSR) Phys Exam - Physical Examination Constitutional: NAD HEENT: moist MMs Neck: supple Respiratory: clear to auscultation bilateral Cardiovascular: RRR Gastrointestinal: soft Neurological: moves all 4 limbs Psychiatric: normal affect Dx/Plan (1) Acute exacerbation of chronic low back pain Code(s): M54.5 - LOW BACK PAIN; G89.29 - OTHER CHRONIC PAIN Status: Acute (2) Generalized weakness Code(s): R53.1 - WEAKNESS Status: Chronic (3) HTN (hypertension) Code(s): I10 - ESSENTIAL (PRIMARY) HYPERTENSION Status: Chronic Qualifiers: Hypertension type: essential hypertension Qualified Code(s): I10 - Essential (primary) hypertension (4) Protein-calorie malnutrition, moderate Code(s): E44.0 - MODERATE PROTEIN-CALORIE MALNUTRITION Status: Chronic (5) Sacral decubitus ulcer, stage II Code(s): L89.152 - PRESSURE ULCER OF SACRAL REGION, STAGE 2 Status: Chronic - Plan PT/OT, out of bed/ambulate, DVT proph w/SCDs * . Discussed with son Blaze. Family requesting palliative care revisit to discuss hospice care. Increase gabapentin dose to 200 mg TID. Side effects discussed. Review of Systems - Review of Systems Respiratory: negative: Cough, Dry, Shortness of Breath, Hemoptysis, SOB with Excertion, Pleuritic Pain, Sputum, Wheezing Cardiovascular: negative: chest pain, palpitations, orthopnea, paroxysmal nocturnal dyspnea, edema, light headedness Musculoskeletal: Back Pain. negative: Neck Pain, Shoulder Pain, Arm Pain, Hand Pain, Leg Pain, Foot Pain - Medications/Allergies Allergies/Adverse Reactions: Allergies Allergy/AdvReac Type Severity Reaction Status Date / Time No Known Drug Allergies Allergy Verified 10/18/17 21:46 Medications: Current Medications Acetaminophen (Tylenol) 1,000 mg PO Q6H PRN PRN Reason: Headache/Fever or Mild Pain Hydrocodone Bitart/Acetaminophen ([place] 5/325) 1 tab PO Q4HR PRN PRN Reason: Severe Pain (7-10) Last Admin: 10/19/17 20:19 Dose: 1 tab Amlodipine Besylate (Norvasc) 5 mg PO DAILY [facility] Last Admin: 10/22/17 09:07 Dose: 5 mg Cholecalciferol (Vitamin D3) 1,000 units PO DAILY [facility] Last Admin: 10/22/17 09:07 Dose: 1,000 units Clonidine (Catapres) 0.1 mg PO Q4H PRN PRN Reason: Systolic BP > 180 Docusate Sodium (Colace) 100 mg PO BID [facility] Last Admin: 10/22/17 09:07 Dose: 100 mg Famotidine (Pepcid) 20 mg PO BID [facility] Last Admin: 10/22/17 09:07 Dose: 20 mg Gabapentin (Neurontin) 200 mg PO TID [facility] Hydralazine HCl (Apresoline) 10 mg SLOW IVP Q4H PRN PRN Reason: Systolic BP > 180 Ibuprofen (Motrin) 200 mg PO Q4H PRN PRN Reason: Mild Pain (1-3) Last Admin: 10/22/17 09:11 Dose: 200 mg Morphine Sulfate (Morphine) 4 mg SLOW IVP Q4H PRN PRN Reason: Moderate Pain (4-6) Last Admin: 10/19/17 15:36 Dose: 4 mg Ondansetron HCl (Zofran Odt) 4 mg PO Q6H PRN PRN Reason: Nausea/Vomiting Ondansetron HCl (Zofran) 4 mg IVP Q6H PRN PRN Reason: Nausea/Vomiting Polyethylene Glycol (Miralax) 17 gm PO DAILY [facility] Last Admin: 10/22/17 09:08 Dose: 17 gm Senna (Senokot) 2 tab PO HSPRN PRN PRN Reason: Constipation Tramadol HCl (Ultram) 50 mg PO Q4H PRN PRN Reason: Moderate Pain (4-6)
[2017-10-23] MEDS: Amlodipine 5 MG TAB PO SCH (08:19)
[2017-10-23] MEDS: Gabapentin 100 MG CAP PO SCH ×3 (08:20→20:28)
[2017-10-23] MEDS: Famotidine 20 MG TAB PO SCH ×2 (08:20→20:27)
[2017-10-23] MEDS: Polyethylene Glycol 3350 17 GM Packet PO SCH (08:20)
[2017-10-23] MEDS: Docusate 100 MG CAP PO SCH ×2 (08:20→20:27)
--- NOTE | 2017-10-23 18:12 | PDOC.PN ---
- Subjective Encounter Start Date: 10/23/17 Encounter Start Time: 18:00 Subjective: f/u for back and hip pain with multiple vertebral compression fx( chronic) -: treated with Gabapentin, [place], Ibuprofen and Tramadol. Still has pain -: with movement but overall better. - Objective Resuscitation Status: Resuscitation Status DNR:Do Not Resuscitate MAR Reviewed: Yes Vital Signs & Weight: Vital Signs (12 hours) Temp Pulse Resp BP BP BP Pulse Ox 10/23/17 15:54 98.3 F 78 20 136/64 96 10/23/17 15:25 98.3 F 78 20 136/64 96 10/23/17 11:48 98.2 F 86 16 159/66 H 10/23/17 09:59 98.2 F 75 18 94 L 10/23/17 08:19 75 178/83 H 10/23/17 08:00 98.2 F 75 18 178/83 H 94 L Weight Admit Weight 100 lb 14.4 oz Weight 98 lb 9.6 oz I&O: 10/22/17 10/23/17 10/24/17 06:59 06:59 06:59 Intake Total 1680 1070 880 Output Total 200 Balance 1480 1070 880 Result Diagrams: 10/20/17 05:25 10/20/17 05:25 EKG Reviewed by me: Yes (Tele - SR in 80's) Phys Exam - Physical Examination Constitutional: NAD HEENT: PERRLA, oral pharynx no lesions Neck: no JVD, supple Respiratory: no wheezing Cardiovascular: RRR Gastrointestinal: soft, non-tender, no distention, positive bowel sounds Musculoskeletal: no edema, pulses present Neurological: normal sensation, moves all 4 limbs Psychiatric: A&O x 3 Skin: normal turgor, cap refill <2 seconds Dx/Plan (1) Acute exacerbation of chronic low back pain Code(s): M54.5 - LOW BACK PAIN; G89.29 - OTHER CHRONIC PAIN Status: Acute Comment: Secondary to vertebral compression fx(old), pain control, PT (2) Vertebral compression fracture Code(s): M48.50XA - COLLAPSED VERTEBRA, NEC, SITE UNSP, INIT Status: Acute Comment: Continue supportive mgmt, see above (3) Sacral decubitus ulcer, stage II Code(s): L89.152 - PRESSURE ULCER OF SACRAL REGION, STAGE 2 Status: Chronic Comment: Local wound care, turning protocol (4) Generalized weakness Code(s): R53.1 - WEAKNESS Status: Chronic (5) Protein-calorie malnutrition, moderate Code(s): E44.0 - MODERATE PROTEIN-CALORIE MALNUTRITION Status: Chronic (6) Hip pain, left Code(s): M25.552 - PAIN IN LEFT HIP Status: Acute Comment: Repeat X-rays L hip, pain control, PT, mobilization - Plan PT/OT, social work nurse Stable overall -: Continue Gabapentin, Tramadol and [place] -: Continue Ibuprofen -: PT for mobilization -: SNF options * Repeat L hip radiographs
[2017-10-23] MEDS: Ibuprofen 200 MG TAB PO PRN (19:22)
--- NOTE | 2017-10-23 21:07 | RAD ---
LEFT HIP TWO VIEWS: History: 89-year-old female with left hip pain. Comparison: 10-02-17 FINDINGS: Total left hip replacement changes. No evidence for dislocation or periprostatic fracture. Bony demin eralization. IMPRESSION: Bony demineralization without periprosthetic fracture or dislocation. Stable left total hip replaceme nt. Unchanged from 10-02-17. POS: [facility]
[2017-10-24] MEDS: Polyethylene Glycol 3350 17 GM Packet PO SCH (09:22)
[2017-10-24] MEDS: Docusate 100 MG CAP PO SCH ×2 (09:22→20:15)
[2017-10-24] MEDS: Gabapentin 100 MG CAP PO SCH ×3 (09:23→20:15)
[2017-10-24] MEDS: Amlodipine 5 MG TAB PO SCH (09:23)
[2017-10-24] MEDS: Famotidine 20 MG TAB PO SCH ×2 (09:23→20:15)
--- NOTE | 2017-10-24 16:30 | PDOC.PN ---
- Subjective Encounter Start Date: 10/24/17 Encounter Start Time: 16:25 Subjective: f/u for back and L hip pain with deconditioning. Overall feels better -: but ambulating minimally. L hip x-rays negative for acute process. - Objective Resuscitation Status: Resuscitation Status DNR:Do Not Resuscitate MAR Reviewed: Yes Vital Signs & Weight: Vital Signs (12 hours) Temp Pulse Resp BP BP BP Pulse Ox 10/24/17 15:57 98.6 F 85 16 152/71 H 96 10/24/17 12:00 98.2 F 67 16 118/57 L 96 10/24/17 09:23 64 10/24/17 08:27 167/83 H 146/65 H 10/24/17 08:00 98.3 F 64 16 131/67 97 Weight Admit Weight 100 lb 14.4 oz Weight 98 lb 9.6 oz I&O: 10/23/17 10/24/17 10/25/17 06:59 06:59 06:59 Intake Total 1070 1000 1200 Balance 1070 1000 1200 Result Diagrams: 10/20/17 05:25 10/20/17 05:25 Radiology Reviewed by me: Yes (L hip x-rays - no acute fx, hardware in place) EKG Reviewed by me: Yes (Tele - SR in 80's) Phys Exam - Physical Examination Constitutional: NAD HEENT: PERRLA, oral pharynx no lesions Neck: no JVD, supple Respiratory: no wheezing, clear to auscultation bilateral Cardiovascular: RRR Gastrointestinal: soft, non-tender, no distention, positive bowel sounds Musculoskeletal: no edema, pulses present Neurological: normal sensation, moves all 4 limbs Skin: normal turgor, cap refill <2 seconds Dx/Plan (1) Acute exacerbation of chronic low back pain Code(s): M54.5 - LOW BACK PAIN; G89.29 - OTHER CHRONIC PAIN Status: Acute Comment: Secondary to vertebral compression fx(old), pain control, PT (2) Vertebral compression fracture Code(s): M48.50XA - COLLAPSED VERTEBRA, NEC, SITE UNSP, INIT Status: Acute Comment: Continue supportive mgmt, see above (3) Sacral decubitus ulcer, stage II Code(s): L89.152 - PRESSURE ULCER OF SACRAL REGION, STAGE 2 Status: Chronic Comment: Local wound care, turning protocol (4) Generalized weakness Code(s): R53.1 - WEAKNESS Status: Chronic (5) Protein-calorie malnutrition, moderate Code(s): E44.0 - MODERATE PROTEIN-CALORIE MALNUTRITION Status: Chronic Comment: Ensure BID with meals (6) Hip pain, left Code(s): M25.552 - PAIN IN LEFT HIP Status: Acute Comment: Repeat X-rays L hip negative for acute process, pain control, PT, mobilization - Plan plan discussed w/ family, PT/OT, transition social worker, out of bed/ambulate, DVT proph w/SCDs Stable overall -: Continue pain control with medical options -: PT for mobilization -: Continue Gabapentin, Tramadol, Tylenol and Ibuprofen -: CM for HH vs SNF options * Trial Locaine patch
[2017-10-24] MEDS: Lidocaine 5% Patch TD SCH (17:55)
[2017-10-24] MEDS: Ibuprofen 200 MG TAB PO PRN (20:15)
[2017-10-25] MEDS: Famotidine 20 MG TAB PO SCH ×2 (08:30→20:03)
[2017-10-25] MEDS: Gabapentin 100 MG CAP PO SCH ×3 (08:30→20:03)
[2017-10-25] MEDS: Polyethylene Glycol 3350 17 GM Packet PO SCH (08:30)
[2017-10-25] MEDS: Amlodipine 5 MG TAB PO SCH (08:30)
[2017-10-25] MEDS: Lidocaine Patch Removal 1 EACH TOP SCH (08:31)
[2017-10-25] MEDS: Docusate 100 MG CAP PO SCH ×2 (08:32→20:05)
[2017-10-25] MEDS: Ibuprofen 200 MG TAB PO PRN (13:51)
--- NOTE | 2017-10-25 16:23 | PDOC.PN ---
- Subjective Encounter Start Date: 10/25/17 Encounter Start Time: 16:15 Subjective: f/u for back, hip pain and vertebral compression fx limiting mobility. -: Overall improved pain. Plan for SNF transfer to [facility] 10/26/17. - Objective Resuscitation Status: Resuscitation Status DNR:Do Not Resuscitate MAR Reviewed: Yes Vital Signs & Weight: Vital Signs (12 hours) Temp Pulse Resp BP BP BP Pulse Ox 10/25/17 15:30 97.8 F 49 L 16 162/69 H 95 10/25/17 11:55 98.5 F 85 20 149/68 H 90 L 10/25/17 10:30 130/71 158/70 H 10/25/17 08:30 73 10/25/17 08:00 96.9 F L 73 18 10/25/17 07:26 96.9 F L 73 20 141/63 H 93 L Weight Admit Weight 100 lb 14.4 oz Weight 98 lb 9.6 oz I&O: 10/24/17 10/25/17 10/26/17 06:59 06:59 06:59 Intake Total 1000 1680 1200 Output Total 350 Balance 1000 1330 1200 Result Diagrams: 10/20/17 05:25 10/20/17 05:25 EKG Reviewed by me: Yes (Tele - SR) Phys Exam - Physical Examination Constitutional: NAD HEENT: PERRLA, oral pharynx no lesions Neck: no JVD, supple Respiratory: no wheezing, clear to auscultation bilateral Cardiovascular: RRR Gastrointestinal: soft, non-tender, no distention, positive bowel sounds Musculoskeletal: no edema, pulses present Neurological: normal sensation, moves all 4 limbs Skin: normal turgor, cap refill <2 seconds Dx/Plan (1) Acute exacerbation of chronic low back pain Code(s): M54.5 - LOW BACK PAIN; G89.29 - OTHER CHRONIC PAIN Status: Acute Comment: Secondary to vertebral compression fx(old), pain control, PT (2) Vertebral compression fracture Code(s): M48.50XA - COLLAPSED VERTEBRA, NEC, SITE UNSP, INIT Status: Acute Comment: Continue supportive mgmt, see above (3) Sacral decubitus ulcer, stage II Code(s): L89.152 - PRESSURE ULCER OF SACRAL REGION, STAGE 2 Status: Chronic Comment: Local wound care, turning protocol (4) Generalized weakness Code(s): R53.1 - WEAKNESS Status: Chronic Comment: Multifactorial, PT/OT, SNF placement (5) Protein-calorie malnutrition, moderate Code(s): E44.0 - MODERATE PROTEIN-CALORIE MALNUTRITION Status: Chronic Comment: Ensure BID with meals (6) Hip pain, left Code(s): M25.552 - PAIN IN LEFT HIP Status: Acute Comment: Repeat X-rays L hip negative for acute process, pain control, PT, mobilization - Plan plan discussed w/ family, PT/OT, high school social studies tutor, out of bed/ambulate, DVT proph w/SCDs Stable overall -: Continue pain control with Gabapentin and Lidocaine patch -: PT for ambulation and mobilization -: Bowel regimen -: Plan for SNF transfer to [facility] 10/26/17 * .
[2017-10-25] MEDS: Lidocaine 5% Patch TD SCH (18:03)
[2017-10-26] MEDS: Lidocaine Patch Removal 1 EACH TOP SCH (05:22)
[2017-10-26] MEDS: Amlodipine 5 MG TAB PO SCH (09:10)
[2017-10-26] MEDS: Gabapentin 100 MG CAP PO SCH ×2 (09:10→14:19)
[2017-10-26] MEDS: Famotidine 20 MG TAB PO SCH (09:10)
[2017-10-26] MEDS: Docusate 100 MG CAP PO SCH (09:10)
[2017-10-26] MEDS: Polyethylene Glycol 3350 17 GM Packet PO SCH (09:11)
[2017-10-26] MEDS: Ibuprofen 200 MG TAB PO PRN (10:35)
[2017-10-26 11:56] VITALS: TEMP 97.9
--- NOTE | 2017-10-26 13:21 | PDOC.PN ---
- Subjective Encounter Start Date: 10/26/17 Encounter Start Time: 13:21 Patient seen and examined. No new complaints. No overnight events. back pain the same and cannot walk - Objective Resuscitation Status: Resuscitation Status DNR:Do Not Resuscitate MAR Reviewed: Yes Vital Signs & Weight: Vital Signs (12 hours) Temp Pulse Resp BP Pulse Ox 10/26/17 11:56 97.9 F 75 28 H 123/57 L 99 10/26/17 09:10 74 10/26/17 08:00 98.8 F 74 18 133/67 93 L 10/26/17 07:35 98.8 F 74 18 10/26/17 04:03 98.1 F 82 16 137/58 L 94 L Weight Admit Weight 100 lb 14.4 oz Weight 98 lb 9.6 oz I&O: 10/25/17 10/26/17 10/27/17 06:59 06:59 06:59 Intake Total 1680 1600 600 Output Total 350 850 400 Balance 1330 750 200 Result Diagrams: 10/20/17 05:25 10/20/17 05:25 Phys Exam - Physical Examination Constitutional: NAD HEENT: sclera anicteric Neck: supple Respiratory: no wheezing, no rales Cardiovascular: RRR Gastrointestinal: soft Musculoskeletal: no edema leg weakness present Psychiatric: normal affect, A&O x 3 Skin: no rash Dx/Plan (1) Hip pain, left Code(s): M25.552 - PAIN IN LEFT HIP Status: Acute Comment: Repeat X-rays L hip negative for acute process, pain control, PT, mobilization (2) Acute exacerbation of chronic low back pain Code(s): M54.5 - LOW BACK PAIN; G89.29 - OTHER CHRONIC PAIN Status: Acute Comment: Secondary to vertebral compression fx(old), pain control, PT (3) Generalized weakness Code(s): R53.1 - WEAKNESS Status: Chronic Comment: Multifactorial, PT/OT, SNF placement (4) HTN (hypertension) Code(s): I10 - ESSENTIAL (PRIMARY) HYPERTENSION Status: Chronic Qualifiers: Hypertension type: essential hypertension Qualified Code(s): I10 - Essential (primary) hypertension (5) LBBB (left bundle branch block) Code(s): I44.7 - LEFT BUNDLE-BRANCH BLOCK, UNSPECIFIED Status: Chronic (6) Protein-calorie malnutrition, moderate Code(s): E44.0 - MODERATE PROTEIN-CALORIE MALNUTRITION Status: Chronic Comment: Ensure BID with meals - Plan cont current plan of care * . continue pain control. CM for DC planning.
[2017-10-26 16:03] VITALS: BP 135/64
--- NOTE | 2017-10-27 11:32 | DIS ---
DATE OF ADMISSION: 10/18/2017 DATE OF DISCHARGE: 10/26/2017 DISCHARGE DIAGNOSES: Acute on chronic back pain, possible sacroiliitis, left hip pain, generalized w eakness, hypertension, protein malnutrition, moderate. HOSPITAL COURSE: An 89-year-old female who was admitted with intractable pain, acute on chronic, and Dr. Malone was also consulted, who recommended conservative measures and patient was started on gabapentin and Decadron and pain medicines to include lidocaine patch. The patient has mild to mode rate improvement of the pain and she was accepted to the skilled facility for further rehabilitation and she was transferred over there in stable condition. On the day of discharge, the patient was hav ing pain improvement, not significant, but good enough to be transferred. DISCHARGE FOLLOWUP: Follow up with the primary care physician in 1-2 weeks. Follow up with Dr. Nirali lion as scheduled. DISCHARGE MEDICATIONS: 1. Tramadol 50 p.o. q.4 p.r.n. 2. MiraLax. 3. Ibuprofen as needed. 4. [place]. 5. Cholecalciferol. 6. Amlodipine 5 mg daily. 7. Gabapentin 200 mg p.o. t.i.d. 8. Famotidine 20 p.o. b.i.d. 9. Docusate 100 mg p.o. b.i.d. The patient is on multiple pain medications. Need close monitoring as tolerated. Follow up wi th the pain management. CONDITION ON DISCHARGE: Stable. DISPOSITION: To skilled facility.
--- NOTE | 2017-12-10 18:24 | EKG ---
Test Reason : Blood Pressure : / mmHG Vent. Rate : 082 BPM Atrial Rate : 082 BPM P-R Int : 188 ms QRS Dur : 144 ms QT Int : 410 ms P-R-T Axes : 042 -44 108 degrees QTc Int : 479 ms Sinus rhythm with Fusion complexes Left axis deviation Left bundle branch block Abnormal ECG Confirmed by BUCK QUIJANO ([id number]), business editor MARY SINGH ([id number]) on 12/10/2017 6:23:54 PM Referred By: Confirmed By:BUCK QUIJANO
== END 2017-10-26 15:41 | DRG 543 ==
LOC: SCSER 16:57 → 2SE 18:37
PROVIDERS: ADMIT Internal Medicine; ATTEND Internal Medicine
DX: M80.88XA Other osteoporosis with current pathological fracture, vertebra(e), initial encounter for fracture (principal); E44.0 Moderate protein-calorie malnutrition; L89.152 Pressure ulcer of sacral region, stage 2; I44.7 Left bundle-branch block, unspecified; Z68.1 Body mass index [BMI] 19.9 or less, adult; M46.1 Sacroiliitis, not elsewhere classified; M25.552 Pain in left hip; Z96.642 Presence of left artificial hip joint; M48.061 Spinal stenosis, lumbar region without neurogenic claudication; Z91.81 History of falling; G89.29 Other chronic pain; M54.9 Dorsalgia, unspecified; Z66 Do not resuscitate; I12.9 Hypertensive chronic kidney disease with stage 1 through stage 4 chronic kidney disease, or unspecified chronic kidney disease; N18.2 Chronic kidney disease, stage 2 (mild)
CPT/HCPCS: 36415; 51701; 71010; 80048; 81003; 82553; 84484; 85007; 85025; 85027; 93005; 96374; A4353; G8978-GP-CM; G8979-GP-CK; G8987-GO-CL; G8988-GO-CJ; J1100; J2270

== ENCOUNTER 2017-10-29 06:06 | Observation (INO) | payer MEDICARE, OTHER ==
[2017-10-29 06:42] LABS: #Basophils 0.1 thou/uL (0.0-0.2); #Eosinphils 0.3 thou/uL (0.0-0.7); #Lymphocytes 1.9 thou/uL (1.20-3.40); #Monocytes 0.7 thou/uL (0.11-0.59); #Neutrophils 3.6 thou/uL (1.40-6.50); %Basophils 1.2 % (0.0-1.0); %Eosinophils 4.5 % (0.0-10.0); %Lymphocytes 29.2 % (21.0-51.0); %Monocytes 10.1 % (0.0-10.0); %Neutrophils 54.9 % (42.0-75.0); Mean Corpuscular HGB CONC 31.9 g/dL (32.0-36.0); Mean Corpuscular Hemoglobin 29.8 pg (27.0-31.0); Mean Corpuscular Volume 93.4 fl (81.0-99.0); Mean Platelet Volume 8.7 fL (7.4-10.4); Platelet Count 215 thou/uL (130-400); RBC Distribution Width 14.2 % (11.5-14.5); Red Blood Cell (RBC) Count 3.68 mill/uL (4.20-5.40); White Blood Cell (WBC) Count 6.6 thou/uL (4.8-10.8)
[2017-10-29 07:02] LABS: ALT (SGPT) 15 U/L (8-55); AST (SGOT) 15 U/L (5-34); Albumin 3.1 g/dL (3.4-4.8); Alkaline Phosphatase 106 U/L (40-150); Anion Gap 13 mmol/L (10-20); BUN (Urea Nitrogen) 19 mg/dL (9.8-20.1); Bilirubin, Total 0.5 mg/dL (0.2-1.2); CK (CPK) 25 U/L (29-168); Calc. Creatinine Clearance 0 mL/min (70-130); Calcium 10.4 mg/dL (7.8-10.44); Carbon Dioxide 26 mmol/L (23-31); Chloride 104 mmol/L (98-107); Estimated GFR-MDRD 58; Glucose 100 mg/dL (83-110); Lipase 16 U/L (8-78); Potassium 3.7 mmol/L (3.5-5.1); Protein, Total 6.1 g/dL (6.0-8.3); Sodium 139 mmol/L (136-145)
[2017-10-29 07:05] LABS: CKMB 1.2 ng/mL (0-6.6); Troponin I 0.039 ng/mL (< 0.028)
[2017-10-29] MEDS ORDERED: Nitroglycerin 2% Ointment 1 INCH/1 GM Packet ONE (07:22)
--- NOTE | 2017-10-29 08:09 | RAD ---
PORTABLE CHEST ONE VIEW: 10/29/2017 6:21 a.m. HISTORY: Chest pain. COMPARISON: 10/18/2017 FINDINGS: The heart size is enlarged. The aorta is tortuous. A hiatal hernia is again noted. The patient is rotated. No focal areas of consolidation, pneumothoraces, joel pulmonary edema, or large effusions are seen. POS: [facility]
[2017-10-29 10:13] LABS: Troponin I 0.037 ng/mL (< 0.028)
[2017-10-29] MEDS ORDERED: Ondansetron HCl/PF 4 MG/2 ML Vial IVP PRN (10:15)
[2017-10-29] MEDS ORDERED: Ondansetron ODT 4 MG TAB SL PRN (10:15)
[2017-10-29 10:24] VITALS: BMI 17.3
[2017-10-29 13:07] LABS: Troponin I 0.031 ng/mL (< 0.028)
[2017-10-29 15:52] VITALS: BP 161/78; TEMP 98.6
[2017-10-29] MEDS ORDERED: HYDROcodone/Acetaminophen 5/325 mg Tablet PO PRN (16:01)
[2017-10-29] MEDS ORDERED: traMADol HCl 50 MG TAB PO PRN (16:01)
[2017-10-29] MEDS ORDERED: IBUPROFEN 200 MG PO PRN (16:01)
[2017-10-29] MEDS ORDERED: Acetaminophen 325 MG TAB PO PRN ×2 (16:01)
--- NOTE | 2017-10-29 17:49 | SS ---
PRIMARY CARE PHYSICIAN: Tashi. CHIEF COMPLAINT: Chest pain. HISTORY OF PRESENT ILLNESS: This is an 89-year-old white female who was recently in the hospital [place] this month for severe worsening of her left hip and back pain. Dr. Malone was consulted. Her medicines were adjusted. She was sent to [facility] just a few days ag o. The patient was doing well there until just prior to coming to the ER in the morning she woke up with chest pain. She sat on the edge of her bed and it was persistent. She could not give any destiny cterization of the chest pain, just that it hurt. They brought her some aspirin and then she was bro ught to the emergency room. By the time she got to the emergency room, the pain had relieved. She d id have one spray of nitroglycerin at the alf as well per the ER notes. Nitro-Bid was place d in the emergency room. She has not had any more chest pain since then. Her initial cardiac marker s that was indeterminate, so she was put in observation. She has had 2 more and they have remained i ndeterminate at 0.031, the most recent, this is actually better than earlier in the month when it was up at 0.68. She did have an elevated brain natriuretic peptide at 800. She has never had one of th karol checked before, but does not have any shortness of breath or swelling. Remainder of her lab work was unremarkable. PAST MEDICAL HISTORY: 1. Severe osteoporosis with multilevel degenerative changes and compression fractures of thoracic an d lumbar spine. 2. Status post fall with left hip fracture, status post surgery. 3. Deconditioning. 4. History of urinary tract infections. 5. Hypertension. PAST SURGICAL HISTORY: Left total hip arthroplasty. FAMILY HISTORY: No inheritable diseases per patient report. SOCIAL HISTORY: The patient resides in [facility], living with her granddaughter. Ambulates with a rolling walker. She does have a history of prior fall with a left hip fracture. No tobacco, alcohol, or illicit drug use. She is currently at [facility]. ALLERGIES: No known drug allergies. CURRENT MEDICATIONS: 1. Tylenol as needed for pain. 2. Amlodipine 5 mg daily. 3. Vitamin D3 1000 units daily. 4. Colace 100 mg twice a day. 5. Pepcid 20 mg twice a day. 6. Neurontin 200 mg 3 times a day. 7. Babb 5/325 mg 1 tablet every 4 hours as needed for pain. 8. Ibuprofen 200 mg as needed for pain. 9. Lidocaine patch 2 patches transdermal each night. 10. MiraLax 17 grams daily. 11. Tramadol 50 mg every 4 hours as needed for pain. REVIEW OF SYSTEMS: CONSTITUTIONAL: No fevers or chills. EYES: No double vision or blurred vision. ENT: No congestion, drainage or sore throat. CARDIOVASCULAR: Chest pain as per HPI, now resolved. No palpitations or racing heart. PULMONARY: No coughing, wheezing or shortness of breath. GASTROINTESTINAL: No abdominal pain. No nausea or vomiting. No diarrhea. She does have some const ipation with her pain medicines, which relieved with MiraLax daily. GENITOURINARY: No dysuria or hematuria. MUSCULOSKELETAL: See HPI. She does have some on the left hip and low back pain. This is better sin ce the medication changes in the hospital last time. SKIN: No rashes or lesions she has noted. NEUROLOGIC: No numbness, tingling or focal weakness, just generalized weakness. OBJECTIVE: VITAL SIGNS: Blood pressure 161/78, pulse 71, respirations 16, O2 sat 94% on room air, temperature 9 8.6. GENERAL: This is a well-developed, thin, elderly white female, in no apparent distress. EYES: Pupils are equal, round, and reactive to light. Oropharynx clear without lesions, erythema or exudate. NECK: Supple. No lymphadenopathy, no thyroid nodules or enlargement. No JVD. CARDIOVASCULAR: Regular rate and rhythm. No murmurs, rubs or gallops. LUNGS: Clear to auscultation bilaterally. No wheezes, crackles, or rhonchi. ABDOMEN: Soft, nontender to palpation, normoactive bowel sounds, no hepatosplenomegaly or masses. EXTREMITIES: Thin, no clubbing, cyanosis or edema. SKIN: No rashes or lesions. NEUROLOGIC: She has diffuse generalized weakness, but no focal weakness or numbness or tingling. Sh e has no facial droop. PSYCHIATRIC: She is alert. She is oriented, little bit slow with history taking. Chest x-ray did review the films along with the ER radiologist's report, there was no acute findings on the chest x-ray. EKG: The patient has a complete left bundle branch block, some T-wave inversion s, no lateral leads, left axis deviation. There were no specific changes from her old EKG done last summer. LABORATORY DATA: CBC with hemoglobin 11.0, hematocrit 34.4. The rest is normal. Complete metabolic panel was normal except for a low albumin of 3.1. Cardiac marker sets and brain natriuretic peptide as per HPI. ASSESSMENT: 1. Chest pain, resolved. The patient does have a good chance of having some underlying coronary art brit disease, but no evidence of a non-ST elevation myocardial infarction or acute coronary syndrome a t this time. Her pain is resolved. Her vital signs are stable. Given her comorbidities and her DNR status, I do not think there is any benefit to doing a stress test at this point. I would recommend starting a daily aspirin 81 mg for heart attack prevention. We will recommend the patient follow up with a boring and filling machine operator within the next 2-4 weeks. She is okay to transfer back to the half-way facility at this time as she is asymptomatic. 2. Hypertension, little bit elevated in the hospital here and I do not know she got her morning meds . She is to resume all of her home medications. 3. Chronic pain. The patient is to continue her pain medications while with laxatives to prevent bl ockage or backing up or constipation. 4. Code status. I did discuss with the patient, she had previously thought about making herself a f ull code at the [facility], but now she is regarding that thinks that she would not want any sort of intervention such as her heart stop. She does not want chest compressions or intubation, so I am danette waterman her DNR in our system. I have encouraged her to talk to the [facility] about it and get that c hanged when she gets back and that is not a problem to change it. DISCHARGE MANAGEMENT: Discharge back to [facility]. ACTIVITY: As tolerated with physical and occupational therapies before. FOLLOWUP: Follow up with primary care physician in the next 1-2 weeks. She does not want to keep in [place] so far away. She can establish with a physician closer by. DIET: Healthy heart, low sodium, fluid restricted diet due to her elevated brain natriuretic peptide . She does have an echocardiogram pending. She can follow up the results of that with a cardiologis t in the next 2-4 weeks. MEDICATIONS: Resume all home medications plus aspirin 81 mg daily.
[2017-10-29] MEDS ORDERED: Lidocaine 5% Patch TD SCH (18:00)
[2017-10-29] MEDS ORDERED: Gabapentin 100 MG CAP PO SCH (21:00)
[2017-10-29] MEDS ORDERED: Famotidine 20 MG TAB PO SCH (21:00)
[2017-10-29] MEDS ORDERED: Docusate 100 MG CAP PO SCH (21:00)
[2017-10-30] MEDS ORDERED: Polyethylene Glycol 3350 17 GM Packet PO SCH (09:00)
[2017-10-30] MEDS ORDERED: Amlodipine 5 MG TAB PO SCH (09:00)
[2017-10-30] MEDS ORDERED: Aspirin 81 mg Enteric Coated Tablet PO SCH (09:00)
== END 2017-10-29 17:00 ==
LOC: ERS 06:06 → 2SW 10:08
PROVIDERS: ADMIT Emergency Medicine; ATTEND Emergency Medicine
DX: R07.89 Other chest pain (principal); M81.0 Age-related osteoporosis without current pathological fracture; I10 Essential (primary) hypertension; M62.81 Muscle weakness (generalized); G89.29 Other chronic pain; Z79.899 Other long term (current) drug therapy; Z98.890 Other specified postprocedural states; Z91.81 History of falling; Z87.81 Personal history of (healed) traumatic fracture; Z87.440 Personal history of urinary (tract) infections
CPT/HCPCS: 36415; 71010; 80053; 82553; 83690; 83880; 84484; 85025; 93005; 93306